=== PATIENT | male | born 1955 | race Caucasian/White ===

== ENCOUNTER 2017-07-06 07:15 | Day surgery (SDC) | payer BC ==
[~2017-07-06] VITALS: Ht 177.8 cm; Wt 102.1 kg
[2017-07-06] MEDS ORDERED: WATER FOR IRRIGATION,STERILE 1,000 ML IRRIG.SOLN IR ONE ×2 (08:55)
[2017-07-06] MEDS ORDERED: SEVOFLURANE 15 MIN GAS INH ONE ×2 (08:55)
[2017-07-06] MEDS ORDERED: fentaNYL CITRATE/PF 100 MCG/2 ML AMP IVP ONE ×2 (08:55)
[2017-07-06] MEDS ORDERED: PROPOFOL 200MG/ 20ML VIAL (DIPRIVAN) IV ONE ×2 (08:55)
[2017-07-06] MEDS ORDERED: ROCURONIUM BROMIDE 10 MG/ML (ZEMURON) IV ONE ×2 (08:55)
[2017-07-06] MEDS ORDERED: ePHEDrine sulfate 50 MG/ML VIAL IVP ONE ×2 (08:55)
[2017-07-06] MEDS ORDERED: NS IRRIG SOLN 1000 ML IR ONE ×2 (08:55)
[2017-07-06] MEDS ORDERED: ONDANSETRON HCL 4 MG/2 ML VIAL IVP PRN (09:45)
[2017-07-06] MEDS ORDERED: fentaNYL CITRATE/PF 100 MCG/2 ML AMP IVP PRN ×2 (09:45)
[2017-07-06 13:22] VITALS: BP_SYST 122
== END 2017-07-06 13:20 | disposition home or self-care (01) ==
LOC: SMU 07:15 → SDS 07:15
PROVIDERS: ATTEND Otolaryngology
DX: J34.2 Deviated nasal septum (principal); J32.9 Chronic sinusitis, unspecified; J34.89 Other specified disorders of nose and nasal sinuses; Z68.32 Body mass index [BMI] 32.0-32.9, adult; J32.4 Chronic pansinusitis; E78.00 Pure hypercholesterolemia, unspecified; G47.33 Obstructive sleep apnea (adult) (pediatric)
CPT/HCPCS: 30520; 31240; 31253; 31267; 31296; 87070; 87075; 87186; 88305; 88311; C1726; J2704; J3010; J7120